=== PATIENT | female | born 1960 | race Caucasian/White ===

== ENCOUNTER 2018-09-04 19:32 | Emergency (ER) | payer MEDICAID ==
[~2018-09-04] VITALS: Ht 154.9 cm; Wt 65.8 kg
[~2018-09-04 19:32] MED LIST: BEN25 PO; BUTA1CAP38 PO; CEPH-443 PO; METO10TA92 PO
[2018-09-04 19:34] VITALS: RESP 20; Ht 154.9 cm; Wt 65.8 kg
--- NOTE | 2018-09-04 20:28 | ERD ---
ER Documentation Chief Complaint Chief Complaint headache x 2 weeks HPI This is a 57-year-old female who was presented here to the emergency department with complaints of headache that is on and off for about 2 weeks. Family members are concerned because she started to be forgetful in the last 3 months. Stated that she has history of migraines but her excedrin and is not helping her pain at this time. LMP: 2010. A0. Denies head injury, loss of consciousness, dizziness, neck pain, neck stiffness, throat pain, difficulty swallowing, difficulty breathing lying flat, shoulder pain, chest pain, back pain, abdominal pain, nausea, vomiting, constipation, diarrhea, urinary symptoms, or possibility being , loss of bowel and bladder control, trauma, injury, falls, difficulty walking due to pain, numbness or tingling sensation, calf pain, recent travel, recent major surgery in the last 3 weeks, calf pain, recent long travel, recent exposure to any illness, recent antibiotic use in the last 3 months, fever, chills, seizures. Past medical history: Migraine. Surgical history: Denies. Social: Denies smoking, use of alcoholic beverages, use of illegal drugs. ROS All systems reviewed and are negative except as per history of present illness. Medications Home Meds Active Scripts Diphenhydramine Hcl* (Benadryl*) 25 Mg Cap, 25 MG PO Q6 PRN for ITCHING/RASH, #30 TAB Prov:PASILABAN,PAYTONAR F 09/04/18 Metoclopramide* (Reglan*) 10 Mg Tablet, 10 MG PO Q6 PRN for NAUSEA AND/OR VOMITING, #20 TAB Prov:PASILABANPAYTONAR F 09/04/18 Wpyjlseljv-Fskicfrlipion-Zrdfujtr* (Fioricet*) 50-300-40 Mg Capsule, 1 CAP PO Q4H PRN for severe headache, #12 CAP Prov:PASILABAN,PAYTONAR F 09/04/18 Cephalexin* (Keflex*) 500 Mg Capsule, 500 MG PO TID for 7 Days, CAP Prov:PASILABAN,KLAR F 09/04/18 Allergies Allergies: Coded Allergies: No Known Drug Allergies (Verified Allergy, Unknown, 09/04/18) Physical Exam Vitals Vital Signs Date Temp Pulse Resp B/P (MAP) Pulse Ox O2 O2 Flow FiO2 Time Delivery Rate 09/04/18 90 115/59 21:46 (77) 09/04/18 98.6 81 20 129/72 98 19:34 (91) Physical Exam Head: Atraumatic Eyes: Normal Conjunctiva ENT: Normal External Ears, Nose and Mouth. Bilateral ears: TMs are not erythematous. No bleeding. No discharge. No hearing loss. No mastoid tenderness. Nose: There is no frontal or maxillary sinus tenderness palpation. Throat: Uvula is in midline and nondisplaced. Tonsils are +1 bilaterally without redness and without exudates. Tolerating secretions. Patent airway. Speaks full and clear sentences. No tripoding. Neck: Full range of motion. No meningismus. No nuchal rigidity. No signs of meningeal irritation. Resp: Clear to auscultation bilaterally. No accessory muscle use in breathing. Cardio: Regular rate and rhythm, no murmurs Abd: Soft, non tender, non distended. Normal bowel sounds. Negative Martin sign. Skin: No petechiae or rashes. Color appears normal for ethnicity. No skin tenting. No signs of severe dehydration. Back: No midline or flank tenderness Ext: No cyanosis, or edema Neur: Awake and alert. No neurological deficits. Psych: Normal Mood and Affect Result Diagram: 09/04/18205809/04/182058 Results 24 hrs Laboratory Tests Test 09/04/18 20:59 White Blood Count 5.1 10^3/ul Red Blood Count 4.36 10^6/ul Hemoglobin 13.6 g/dl Hematocrit 40.5 % Mean Corpuscular Volume 92.9 fl Mean Corpuscular Hemoglobin 31.2 pg Mean Corpuscular Hemoglobin Concent 33.6 g/dl Red Cell Distribution Width 12.5 % Platelet Count 264 10^3/UL Mean Platelet Volume 10.5 fl Immature Granulocytes % 0.200 % Neutrophils % 42.0 % Lymphocytes % 44.6 % Monocytes % 9.1 % Eosinophils % 2.9 % Basophils % 1.2 % Nucleated Red Blood Cells % 0.0 /100WBC Immature Granulocytes # 0.010 10^3/ul Neutrophils # 2.2 10^3/ul Lymphocytes # 2.3 10^3/ul Monocytes # 0.5 10^3/ul Eosinophils # 0.2 10^3/ul Basophils # 0.1 10^3/ul Nucleated Red Blood Cells # 0.0 10^3/ul Prothrombin Time 13.2 Sec Prothrombin Time Ratio 1.0 INR International Normalized Ratio 0.99 Activated Partial Thromboplast Time 31.2 Sec Urine Color STRAW Urine Clarity CLEAR Urine pH 6.0 Urine Specific [place] 1.002 Urine Ketones NEGATIVE mg/dL Urine Nitrite NEGATIVE mg/dL Urine Bilirubin NEGATIVE mg/dL Urine Urobilinogen NEGATIVE mg/dL Urine Leukocyte Esterase 2+ Yeny/ul Urine Microscopic RBC 3 /HPF Urine Microscopic WBC 1 /HPF Urine Squamous Epithelial Cells FEW /HPF Urine Hemoglobin 2+ mg/dL Urine Glucose NEGATIVE mg/dL Urine Total Protein NEGATIVE mg/dl Sodium Level 143 mmol/L Potassium Level 3.3 mmol/L Chloride Level 107 mmol/L Carbon Dioxide Level 27 mmol/L Anion Gap 9 Blood Urea Nitrogen 7 mg/dl Creatinine 0.65 mg/dl Est Glomerular Filtrat Rate mL/min > 60 mL/min Glucose Level 70 mg/dl Calcium Level 9.1 mg/dl Total Bilirubin 0.7 mg/dl Direct Bilirubin 0.00 mg/dl Indirect Bilirubin 0.7 mg/dl Aspartate Amino Transf (AST/SGOT) 25 IU/L Alanine Aminotransferase (ALT/SGPT) 32 IU/L Alkaline Phosphatase 101 IU/L Troponin I < 0.012 ng/ml Total Protein 7.6 g/dl Albumin 4.2 g/dl Globulin 3.40 g/dl Albumin/Globulin Ratio 1.23 Current Medications Medications Dose Sig/Yonatan Start Time Status Last (Trade) Ordered Route PRN Stop Time Admin Dose Reason Admin Sodium 1,000 ml @ Q1H ONCE 09/04/18 DC 09/04/18 Chloride 1,000 mls/hr IV 21:00 21:16 09/04/18 21:59 10 mg ONCE ONCE 09/04/18 DC 09/04/18 Metoclopramid IV 21:30 21:29 e HCl 09/04/18 21:31 (Reglan) 25 mg ONCE ONCE 09/04/18 DC 09/04/18 Diphenhydrami IV 21:30 21:29 ne HCl 09/04/18 21:31 (Benadryl) Sumatriptan 6 mg ONCE ONCE 09/04/18 DC 09/04/18 Succinate SC 21:30 21:34 (Imitrex) 09/04/18 21:31 Potassium 40 meq ONCE STAT 09/04/18 DC 09/04/18 Chloride PO 22:06 22:29 (Klor-Con 20) 09/04/18 22:07 Procedures/MDM Diagnostic tests: EKG: Normal sinus rhythm with a ventricular rate of 62 bpm. No STEMI. Read by supervising physician. Urinalysis: 2+ leukocyte esterase. Culture urine: Sent. Blood works: Mildly hypokalemic. CT of the brain: No evidence of acute intracranial pathology. Treatment: Saline lock. Normal saline IV bolus. Reglan IV. Benadryl IV. Imitrex IM. K. Dur. Re-evaluation: Denies headache, neck pain, chest pain. Romberg test negative. No neurological deficits. Stated that he feels much better this time and that s he is ready to go home. Patient and family member stated that they are comfortable to go home. Differential diagnosis I have low suspicion for sepsis, mastoiditis, peritonsillar abscess, meningitis, subarachnoid hemorrhage, severe hyponatremia, electrolyte imbalance, cerebral edema. Final diagnosis: Headache. Migraine. UTI. Hypokalemia. Prescription: Keflex. Fioricet. Reglan. Benadryl. Follow-up with PCP in the next 24-48 hours. PCP to refer patient to neurologist in the next 24 to 48 hours. Come back here in the emergency department for any new symptoms or any worsening symptoms. All questions and concerns were answered. Patient and family members verbalized understanding and agreed with plan of care. Hemodynamically stable on discharge. Departure Diagnosis: Primary Impression: Headache Additional Impressions: UTI (urinary tract infection) Migraine Condition: Stable Additional Instructions: Follow-up with PCP in the next 24-48 hours. PCP to refer patient to neurologist in the next 24 to 48 hours. Come back here in the emergency department for any new symptoms or any worsening symptoms. MARKO ALTAMIRANO Sep 04, 2018 20:28
[2018-09-04] MEDS ORDERED: SOD CHLORIDE 0.9% 1,000 ML IV ONE (21:00)
[2018-09-04] MEDS ORDERED: METOCLOPRAMIDE 10 MG INJ IV ONE (21:30)
[2018-09-04] MEDS ORDERED: DIPHENHYDRAMINE 50 MG INJ IV ONE (21:30)
[2018-09-04] MEDS ORDERED: SUMATRIPTAN 6 MG/0.5 ML INJ SC ONE (21:30)
[2018-09-04 21:46] VITALS: BP 115/59; PULSE 90
[2018-09-04] MEDS ORDERED: POTASSIUM CHLORIDE (SR) 20 MEQ TAB PO STA (22:06)
== END 2018-09-04 22:40 | disposition home or self-care (01) ==
LOC: FTE 19:32
DX: G43.909 Migraine, unspecified, not intractable, without status migrainosus (principal); N39.0 Urinary tract infection, site not specified
CPT/HCPCS: 70450; 80053; 81001; 84484; 85025; 85610; 85730; 87086; 93005; 96372; 96374; 96375; J1200; J2765; J3030; J7030; Z7502; Z7610